=== PATIENT | female | born 1995 | race Caucasian/White ===

== ENCOUNTER → 2017-11-27 10:56 | Outpatient (CLI) | payer OTHER, MEDICAID, SELFPAY ==
[2017-11-27 12:47] LABS: Add Manual Diff / Slide Review NO; Basophils Percent Auto 0.4 % (0-2); Eosinophils Percent Auto 0.6 % (2-4); Hematocrit 32.9 % (36-46); Hemoglobin 11.4 g/dL (12.0-16.0); Lymphocytes Percent Auto 15.4 % (25-40); Mean Corpuscular HGB Conc 34.7 % (30-36); Mean Corpuscular Hemoglobin 32.1 PG (26-34); Mean Corpuscular Volume 92.5 fL (80-100); Monocytes Percent Auto 5.1 % (3-14); Neutrophils Absolute Auto 6800 /uL (3000-5900); Neutrophils Percent Auto 78.5 % (50-75); Platelet Count 300 X10^3/uL (150-400); Red Blood Cell Count 3.56 X10^6/uL (4.0-5.2); White Blood Cell Count 8.6 X10^3/uL (4.5-11.0)
[2017-11-27 13:27] LABS: GTT (PREG) 1 Hour PP 50gm Dose 104 mg/dL (76-139)
[2017-11-27 17:20] LABS: Hepatitis B Surface Antigen NEGATIVE s/c (NEGATIVE); Rubella Antibody IgG 11.1 IU/mL (>15)
[2017-11-27 17:40] LABS: HIV 1 and 2 Antibody NEGATIVE (NEGATIVE); Hep C Virus Ab w/Reflex Quant NEGATIVE s/c (NEGATIVE)
[2017-11-28 14:09] LABS: Varicella IgG Antibody < 135.00 Index (< 135.00)
[2017-11-28 14:10] LABS: HSV 2 IGG AB < 0.90 index (< 0.90); HSV1IGG < 0.90 index (< 0.90)
[2017-12-06 14:20] LABS: Rapid Plasma Reagin NON-REACTIVE
== END ==
PROVIDERS: Visit Provider Obstetrics & Gynecology
DX: Z34.91 Encounter for supervision of normal pregnancy, unspecified, first trimester (principal); Z34.92 Encounter for supervision of normal pregnancy, unspecified, second trimester; Z3A.24 24 weeks gestation of pregnancy
CPT/HCPCS: 80055; 82950; 86695; 86696; 86703; 86787; 86803; 86850; 86900; 86901; 87086

== ENCOUNTER → 2018-01-21 12:23 | Outpatient (CLI) | payer OTHER, MEDICAID, SELFPAY ==
[2018-01-22 08:42] LABS: Strep Grp B PCR NEG for Grp B Strep
== END ==
PROVIDERS: Visit Provider Obstetrics & Gynecology
DX: Z34.83 Encounter for supervision of other normal pregnancy, third trimester (principal)
CPT/HCPCS: 87653

== ENCOUNTER 2018-01-26 04:49 | Inpatient (IN) | payer OTHER, MEDICAID, SELFPAY ==
--- NOTE | 2018-01-26 05:34 | PM.OBHP.1 ---
OB HPI Date/Time Date of admission: 01/26/18 Date Patient Seen: 01/26/18 Time Patient Seen: 05:34 History of Present Condition Chief complaint: evaluation of labor : 2 Para: 1 Estimated Date of Delivery: 02/10/18 Estimated Gestational Age (weeks): 37 Narrative: Elicia Chavez is a 23 year old female arrived in active labor. She has spontaneous rupture membranes at 4:35 a.m. clear fluid. When she presented to Labor and delivery she was 9-1/2 cm dilated and +2 station. History of Present care: limited care (5 visits) Dating criteria: LMP confirmed by 2nd trimester US Ultrasounds: normal mid trimester US Obstetrical complications: none Medical complications: none Preadmission Labs Blood type: O (+) positive -: Antibody screen: negative, GBS status: negative, HBsAG: negative, HIV: negative, HSV 1: negative, HSV 2: negative and RPR/VDLR: negative -: Rubella: not immune and Varicella: not immune HCAB: negative 1 hr GTT: 104 Prior (ies) History: 05/21/2012 40 weeks gestation vaginal delivery 7 lb 7 oz Evaluation Evaluation Baseline heart rate: 120 Variability: Moderate (11-25) monitor accelerations: Present monitor decelerations: Variable Contraction Frequency (minutes): 2 Uterine Contraction Intensity: Strong/Firm Category of Tracing: II Cervical dilation (cm): 10 Cervical effacement (%): 100 station: +2 PFSH Medical History Migraines (Acute) Surgical History H/O laparoscopy (Acute) History of hip surgery (Acute) Social History marital status: Smoking Status: Never smoker alcohol intake: never substance use type: does not use Meds Home Medications Medication Instructions Recorded Confirmed Type 1 tab PO DAILY 10/16/17 10/16/17 History vitamin,calcium,kthsrgau-wwhv-ubyfa acid tablet ferrous sulfate ER 142 mg (45 mg 142 mg PO DAILY tab 11/28/17 History iron) tablet,extended release Allergies Allergy/AdvReac Type Severity Reaction Status Date / Time PENICILLIN Allergy Mild Rash Uncoded 10/16/17 14:47 Review of Systems Review of Systems All systems reviewed & are unremarkable except as noted in HPI and below Exam Vital Signs (past 8 hours): The and blood pressure 121/78, pulse of 94, temperature 96.8? Narrative Exam Narrative: HEENT exam within normal limits. Abdomen is gravid. Extremities without edema and nontender Assessment and Plan (1) Vaginal delivery: Current visit: Yes Status: Acute Patient arrived in Labor and delivery in active labor and quickly had spontaneous vaginal delivery of a viable female with no tears. Baby's Apgars were 9 and 9. 100 cc blood loss. Routine care.
--- NOTE | 2018-01-26 05:48 | PM.OBPRVD ---
Delivery date: 01/26/18 Intrapartal events: Precipitous Labor < 3 hours Induction method: none Delivery monitor: external FHT and external uterine Route of delivery: Laceration description: None Estimated blood loss (mL): 100 Anesthesia type: None Narrative: Patient arrived on Labor and delivery in active labor. She was 9-1/2 cm and +2 station when she arrived. She delivered spontaneously, over an intact perineum, a viable female who was placed on maternal abdomen. After cord stopped pulsating the cord was clamped and cut and cord bloods obtained. There were no cervical, vaginal, or perineal tears. Both and mother doing well. Baby 1: Infant gender: Female Presentation: vertex position: Right Occiput Anterior Placenta delivery description: Spontaneous cord vessel description: Nuchal Cord score (1 min): 9 score (5 min): 9 Plan for aftercare: Routine care
--- NOTE | 2018-01-26 05:51 | P.PCNOB_ITS ---
Delivery date: 01/26/18 Intrapartal events: Precipitous Labor < 3 hours Induction method: none Delivery monitor: external FHT and external uterine Route of delivery: Laceration description: None Estimated blood loss (mL): 100 Anesthesia type: None Narrative: Patient arrived on Labor and delivery in active labor. She was 9-1/ 2 cm and +2 station when she arrived. She delivered spontaneously, over an intact perineum, a viable female who was placed on maternal abdomen. After cord stopped pulsating the cord was clamped and cut and cord bloods obtained. There were no cervical, vaginal, or perineal tears. Both and mother doing well. Hendrix Baby 1: Infant gender: Female Presentation: vertex position: Right Occiput Anterior Placenta delivery description: Spontaneous cord vessel description: Nuchal Cord score (1 min): 9 score (5 min): 9 Plan for aftercare: Routine care
[2018-01-26 06:33] VITALS: BP 113/68
[2018-01-26] MEDS: DOCUSATE 250 MG CAPSULE PO (07:59)
[2018-01-26] MEDS: IBUPROFEN 600 MG TABLET PO ×3 (07:59→20:20)
[2018-01-27] MEDS: IBUPROFEN 600 MG TABLET PO ×2 (02:10→08:21)
[2018-01-27 06:25] LABS: Hematocrit 38.5 % (36-46)
[2018-01-27] MEDS: DOCUSATE 250 MG CAPSULE PO (08:21)
[2018-01-27 09:16] VITALS: BP 113/68; PULSE 75; RESP 16; TEMP 36.7
--- NOTE | 2018-01-28 08:27 | PM.DS.1 ---
History of Present Illness Date Patient Seen: 01/27/18 Time Patient Seen: 07:45 Chief complaint: labor & delivery Narrative: Patient is a 23-year-old 2 para 2 day # 1 status post spontaneous vaginal delivery after precipitous labor. course has been unremarkable. Discharge Providers Date of admission: 01/26/18 04:49 Consults: 01/26/18 06:29 Consult to Territory Representative Routine Comment: Discharge provider: Debbie Reardon MD Discharge Date: 01/27/18 Summary Discharge Diagnosis: 37 weeks gestation Precipitous labor Spontaneous vaginal delivery Hospital Course: Patient is a 23-year-old 2 para 2 who presented on 11/26/2017 9 and 0.5 cm dilated. She had a precipitous labor and had a spontaneous vaginal delivery shortly after arrival. Post course was unremarkable. Status at Discharge Functional status at discharge: independent ambulation Overall status at discharge: patient is progressing back to baseline Time Spent with Patient Less than 30 minutes Exam Vital Signs (past 8 hours): Generally: Patient is sitting up in bed, holding infant, no acute distress Fundus firm at U -2 Extremities: Negative Homans, no edema Objective Labs Result Diagrams: 01/27/18 06:15 Discharge Plan Discharge Plan Patient Disposition: Home Discharge Med Rec/Prescriptions Prescriptions: New ibuprofen 600 mg tablet 600 mg PO TID PRN (Reason: pain) Qty: 30 RF: 3 Continue ferrous sulfate [Slow Fe] 142 mg (45 mg iron) tablet extended release 142 mg PO DAILY RF: 0 prenat.vits,saurabh,thz-fmai-alxyj tablet 1 tab PO DAILY RF: 0 Follow up/Referrals: Debbie Reardon MD [Physician] - 6 Weeks (Please follow up on March 11, 2018 at 1030 with ) Provider Discharge Instructions Diet: Diet as Tolerated Activity: No intercourse Skin/Wound/Dressing Care Report to your healthcare provider any signs of infection, such as:: chills, fever, increased pain and unusual drainage Visit Report/Discharge Packet Instructions: DI for Labor and Delivery, Vaginal Stand Alone Forms: Discharge: Care Visit Report Forms: Stroke Signs & Symptoms Discharge Data Attending Provider: Debbie Reardon Admit Date/Time: 01/26/18 04:49 Discharges patient from system. Discharge Date/Time: 01/27/18 12:50
== END 2018-01-27 12:50 | disposition home or self-care (01) | DRG 560 ==
PROVIDERS: Specialist; Admitting Provider Obstetrics & Gynecology; Visit Provider Obstetrics & Gynecology
DX: O69.81X0 Labor and delivery complicated by cord around neck, without compression, not applicable or unspecified (principal); O60.14X0 Preterm labor third trimester with preterm delivery third trimester, not applicable or unspecified; Z3A.37 37 weeks gestation of pregnancy; O62.3 Precipitate labor; Z37.0 Single live birth
CPT/HCPCS: 36415; 59050; 59409; 85014; 85018; G0379

== ENCOUNTER → 2024-07-17 11:40 | Outpatient (CLI) | payer SELFPAY | LOC: LAB 11:40 | PROVIDERS: Visit Provider Chiropractor | DX: R30.0 Dysuria (principal) | CPT/HCPCS: 87077; 87086 ==